=== PATIENT | male | born 1955 | race Caucasian/White ===

== ENCOUNTER 2020-09-08 11:44 | Emergency (ER) | payer MEDICARE ==
[~2020-09-08] VITALS: Ht 188 cm; Wt 83.0 kg
[2020-09-08 11:55] VITALS: BP 178/80
[2020-09-08] MEDS ORDERED: ACETAMINOPHEN 500 MG TAB PO ONE (13:15)
[2020-09-08] MEDS ORDERED: ACETAMINOPHEN 325 MG TAB PO ONE (13:15)
== END 2020-09-08 13:43 | disposition home or self-care (01) ==
LOC: ER 11:44 → EDBD 11:44 → ER 13:43
DX: S00.03XA Contusion of scalp, initial encounter (principal); I10 Essential (primary) hypertension; W00.0XXA Fall on same level due to ice and snow, initial encounter; Y93.29 Activity, other involving ice and snow; Y92.89 Other specified places as the place of occurrence of the external cause; Y99.8 Other external cause status
CPT/HCPCS: 70450